=== PATIENT | female | born 1990 | race Caucasian/White ===

== ENCOUNTER 2016-10-09 22:52 | Emergency (ER) | payer MEDICAID, OTHER ==
[~2016-10-09] VITALS: Ht 162.6 cm; Wt 60.0 kg
[~2016-10-09 22:52] MED LIST: CYCL5TAB PO; NAPR500 PO
[2016-10-09 22:56] VITALS: BP 111/79; PULSE 112; RESP 20; TEMP 98.8; O2SAT 96
--- NOTE | 2016-10-10 00:06 | RADRPT ---
EXAM DATE/TIME: 10/09/2016 23:41 [place] COMPARISON: No previous studies available for comparison. INDICATIONS : Cough and chest congestion. MEDICAL HISTORY : None. SURGICAL HISTORY : None. ENCOUNTER: Initial ACUITY: 1 day PAIN SCORE: 8/10 LOCATION: Bilateral chest FINDINGS: PA and lateral views of the chest demonstrate the lungs to be symmetrically aerated without evidence of mass, infiltrate or effusion. The cardiomediastinal contours are unremarkable. Osseous structure s are intact. CONCLUSION: No acute disease. Michael Antonio MD on October 10, 2016 at 0:05 Board Certified Radiologist. This report was verified electronically.
[2016-10-10] MEDS ORDERED: CLAR10CA3 PO (00:13)
--- NOTE | 2016-10-10 00:14 | PD ---
HPI Chief Complaint: Cold / Flu Symptoms Time Seen by Provider: 23:10 Travel History International Travel<30 days: No Contact w/Intl Traveler<30days: No Traveled to known affect area: No History of Present Illness HPI This is an otherwise healthy 18 year-old woman who presents to the emergency department complaining of intermittent cough is persistent for the past 2 years. She states she just Keeps coming back and doesn't really go away completely. Is not really productive. No fevers or chills. No congestion. No sick contacts. She otherwise has been feeling well. History Past Medical History Medical History: Denies Significant Hx Tetanus Vaccination: < 5 Years Influenza Vaccination: No LMP: 10 DAYS : 0 Para: 0 Past Surgical History Surgical History: No Previous Surgery Social History Alcohol Use: Yes (WHEN SHE GOES OUT) Tobacco Use: Yes (WHEN SHE GOES OUT) Allergies-Medications (Allergen,Severity, Reaction): Coded Allergies: No Known Allergies (Verified , 10/09/16) Reported Meds & Prescriptions Reported Meds & Active Scripts Active Review of Systems Except as stated in HPI: all other systems reviewed are Neg Physical Exam Narrative GENERAL: Well-appearing 18 year-old woman, some intermittent cough. SKIN: Focused skin assessment warm/dry. HEAD: Atraumatic. Normocephalic. EYES: Pupils equal and round. No scleral icterus. No injection or drainage. ENT: No nasal bleeding or discharge. Mucous membranes pink and moist. NECK: Trachea midline. No JVD. CARDIOVASCULAR: Regular rate and rhythm. No murmur appreciated. RESPIRATORY: No accessory muscle use. Clear to auscultation. Breath sounds equal bilaterally. GASTROINTESTINAL: Abdomen soft, non-tender, nondistended. Hepatic and splenic margins not palpable. MUSCULOSKELETAL: No obvious deformities. No clubbing. No cyanosis. No edema. NEUROLOGICAL: Awake and alert. No obvious cranial nerve deficits. Motor grossly within normal limits. Normal speech. PSYCHIATRIC: Appropriate mood and affect; insight and judgment normal. Data Data Last Documented VS Vital Signs Date Time Temp Pulse Resp B/P Pulse Ox O2 Delivery O2 Flow Rate FiO2 10/09/16 23:29 Room Air 10/09/16 22:56 98.8 112 20 111/79 96 Orders Chest, Pa & Lat (10/09/16 ) [facility] Medical Decision Making Medical Screen Exam Complete: Yes Emergency Medical Condition: Yes Interpretation(s) Chest x-ray: Negative Differential Diagnosis Recurrent URIs, allergy symptoms, indigestion or reflux, other Narrative Course Medical decision making 18 year-old woman of recurrent chronic cough. Suspect allergies. No real reflux symptoms. No history of asthma. No wheezing on exam. She looks well. She is a little bit worried. I was a carrier for CF. Don't see any evidence of CSF I think it extremely unlikely. Recommend outpatient follow-up. Diagnosis Primary Impression: Chronic cough Additional Instructions: Take loratadine as prescribed. Follow-up with her primary physician in 2-4 weeks. Scripts Loratadine (Claritin)10 Mg Cap10 Mg PO DAILY 60 Days Ref 0 Prov:Damon Ramey MD 10/10/16 Disposition: 01 DISCHARGE HOME Condition: Stable Damon Ramey MD Oct 10, 2016 00:14
[2016-10-10 00:20] VITALS: BP 110/64
== END 2016-10-10 00:22 | disposition home or self-care (01) ==
LOC: PHED 22:52
DX: R05 Cough (principal)
CPT/HCPCS: 71020; 99283

== ENCOUNTER 2016-12-19 13:47 | Emergency (ER) | payer MEDICAID ==
[~2016-12-19] VITALS: Ht 162.6 cm; Wt 59.2 kg
[~2016-12-19 13:47] MED LIST changes: +CLAR10CA3 PO; -CYCL5TAB PO; -NAPR500 PO
[2016-12-19 13:54] VITALS: BP 96/67; PULSE 87; RESP 16; TEMP 98.6; O2SAT 97
[2016-12-19 14:19] LABS: BLOOD, URINE TRACE (NEG); GLUCOSE,URINE NEG (NEG); KETONE, URINE TRACE mg/dL (NEG); NITRITE,URINE NEG (NEG)
--- NOTE | 2016-12-19 14:24 | PD ---
HPI Chief Complaint: Electric Trucker Problem/Complaint Time Seen by Provider: 14:14 Travel History International Travel<30 days: No Contact w/Intl Traveler<30days: No Traveled to known affect area: No History of Present Illness HPI 26-year-old female patient presents to the ER today for several days history of pelvic discomfort and whitish foul smelling vaginal discharge. She states that the last time she had something similar, she had bacterial vaginosis. She denies any new partners, fevers, vomiting, or any other symptoms. Modifying Factors: None Associated Signs & Symptoms: Vaginal discharge Risk Factors: Bacterial vaginosis PFSH Past Medical History Diminished Hearing: No Tetanus Vaccination: > 5 Years Influenza Vaccination: No ?: Not : 0 Para: 0 Miscarriage: 0 : 0 Past Surgical History Abdominal Surgery: Yes Social History Alcohol Use: Yes (WHEN SHE GOES OUT) Tobacco Use: Yes (WHEN SHE GOES OUT) Substance Use: No Allergies-Medications (Allergen,Severity, Reaction): Coded Allergies: No Known Allergies (Verified , 12/19/16) Reported Meds & Prescriptions Reported Meds & Active Scripts Active No Active Prescriptions or Reported Medications Review of Systems Except as stated in HPI: all other systems reviewed are Neg Physical Exam Narrative GENERAL: Well-developed young female patient currently in no acute distress. Awake and oriented 3. SKIN: Focused skin assessment warm/dry. HEAD: Atraumatic. Normocephalic. EYES: Pupils equal and round. No scleral icterus. No injection or drainage. ENT: No nasal bleeding or discharge. Mucous membranes pink and moist. NECK: Trachea midline. No JVD. CARDIOVASCULAR: Regular rate and rhythm. No murmur appreciated. RESPIRATORY: No accessory muscle use. Clear to auscultation. Breath sounds equal bilaterally. GASTROINTESTINAL: Abdomen soft, non-tender, nondistended. Hepatic and splenic margins not palpable. GENITOURINARY: Normal external genitalia without lesions or erythema. Vaginal vault with a very small amount of blood at the cervical os but no drainage. Cervical os was closed without drainage. No cervical motion tenderness. Uterus nontender and nonenlarged. Bilateral adnexa nontender without masses. MUSCULOSKELETAL: No obvious deformities. No clubbing. No cyanosis. No edema. NEUROLOGICAL: Awake and alert. No obvious cranial nerve deficits. Motor grossly within normal limits. Normal speech. PSYCHIATRIC: Appropriate mood and affect; insight and judgment normal. Data Data Last Documented VS Vital Signs Date Time Temp Pulse Resp B/P (MAP) Pulse Ox O2 Delivery O2 Flow Rate FiO2 12/19/16 13:54 98.6 87 16 96/67 (77) 97 Orders Orders Gc And Chlamydia Pcr (12/19/16 13:59) Wet Prep Profile (12/19/16 13:59) Urinalysis - C+S If Indicated (12/19/16 13:59) Ed Urine Pregnancytest Poc (12/19/16 13:59) Labs Laboratory Tests Test 12/19/16 14:05 Urine Collection Type VOIDED Urine Color YELLOW Urine Turbidity SLIGHT Urine pH 6.0 Urine Specific [place] 1.027 Urine Protein 100 mg/dL Urine Glucose (UA) NEG mg/dL Urine Ketones TRACE mg/dL Urine Occult Blood TRACE Urine Nitrite NEG Urine Bilirubin NEG Urine Leukocyte Esterase TRACE Urine RBC 0-3 /hpf Urine WBC 0-2 /hpf Urine Squamous Epithelial Cells 6-8 /hpf Urine Bacteria FEW /hpf Urine Mucus FEW /lpf Microscopic Urinalysis Comment CULT NOT INDICATED MDM Medical Decision Making Medical Screen Exam Complete: Yes Emergency Medical Condition: Yes Medical Record Reviewed: Yes Differential Diagnosis Vaginal discharge: Bacterial vaginosis versus cervicitis as his UTI Narrative Course patient is not . UA did not show significant UTI. Considering patient' s history, my plan would be to treat her empirically for DrRafael vaginosis. GC is pending. 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 Return for new issues as needed. The plan has been discussed with her and she states understanding. Diagnosis Primary Impression: Vaginal discharge Med/Other Pt SpecificInfo: Prescription(s) given Scripts Metronidazole (Flagyl) 500 Mg Tab 500 MG PO TID for Infection for 7 Days, TAB 0 Refills Prov: Lucretia Hewitt MD 12/19/16 Disposition: 01 DISCHARGE HOME Condition: Stable Lucretia Hewitt MD Dec 19, 2016 14:24
[2016-12-19 14:26] LABS: METHOD OF COLLECTION VOIDED; URINE COLOR YELLOW (YELLW/STRAW)
[2016-12-19 14:32] LABS: MUCUS URINE FEW /lpf (OCC); WBC, URINE 0-2 /hpf (0-5)
[2016-12-19 14:33] LABS: BACTERIA, URINE FEW /hpf; COMMENT (UR) CULT NOT INDICATED; CULTURE IF INDICATED CULT NOT INDICATED; RBC, URINE 0-3 /hpf (0-3)
[2016-12-19] MEDS ORDERED: METR-1 PO (14:36)
[2016-12-19 18:30] LABS: CHLAMYDIA PCR NOT DETECTED (NOT DETECT); NEISSERIA PCR NOT DETECTED (NOT DETECT)
== END 2016-12-19 14:57 | disposition home or self-care (01) ==
LOC: PHED 13:47
DX: N89.8 Other specified noninflammatory disorders of vagina (principal); R10.2 Pelvic and perineal pain; Z72.0 Tobacco use
CPT/HCPCS: 81001; 84703; 87210; 87491; 87591; 99283

== ENCOUNTER 2017-07-24 07:41 | Emergency (ER) | payer MEDICAID ==
[~2017-07-24] VITALS: Ht 157.5 cm; Wt 56.0 kg
[~2017-07-24 07:41] MED LIST changes: +BENZ100 PO; -CLAR10CA3 PO; +OMEP20TA93 PO; +VENTAER INH
[2017-07-24 07:44] VITALS: BP 114/72; PULSE 93; RESP 17; TEMP 98.4; O2SAT 97
--- NOTE | 2017-07-24 08:10 | PD ---
HPI Chief Complaint: Abdominal Pain Time Seen by Provider: 07:59 Travel History International Travel<30 days: No Contact w/Intl Traveler<30days: No Traveled to known affect area: No History of Present Illness HPI 27-year-old female complains of low abdominal pain and dark cloudy urine. Patient states that the symptoms started 2 days ago. Patient states the pain and cramping pain with shooting pain down to the vaginal area. Patient denies any vaginal discharge or bleeding. Patient denies any back pain. Patient denies any nausea vomiting diarrhea. Patient denies any dysuria. Patient states that she had urinary frequency. Patient denies any chest pain or shortness of breath. On a scale of 1-10 the pain is a 7. Patient got a second Depo shot yesterday. PFSH Past Medical History Medical History: Denies Significant Hx Diminished Hearing: No Tetanus Vaccination: > 5 Years Influenza Vaccination: No ?: Not LMP: Apr 2017 : 2 Para: 2 Miscarriage: 0 : 3 Past Surgical History Surgical History: No Previous Surgery Abdominal Surgery: Yes Social History Alcohol Use: Yes (WHEN SHE GOES OUT) Tobacco Use: Yes (WHEN SHE GOES OUT) Substance Use: No Allergies-Medications (Allergen,Severity, Reaction): Coded Allergies: No Known Allergies (Verified Adverse Reaction, Unknown, 07/24/17) Reported Meds & Prescriptions Reported Meds & Active Scripts Active No Active Prescriptions or Reported Medications Review of Systems General / Constitutional: No: Fever Eyes: No: Visual changes HENT: No: Headaches Cardiovascular: No: Chest Pain or Discomfort Respiratory: No: Shortness of Breath Gastrointestinal: Positive: Abdominal Pain Genitourinary: No: Dysuria Musculoskeletal: No: Pain Skin: No Rash Neurologic: No: Weakness Psychiatric: No: Depression Endocrine: No: Polydipsia Hematologic/Lymphatic: No: Easy Bruising Physical Exam Narrative GENERAL: Well-nourished, well-developed patient. SKIN: Focused skin assessment warm/dry. HEAD: Normocephalic. EYES: No scleral icterus. No injection or drainage. NECK: Supple, trachea midline. No JVD or lymphadenopathy. CARDIOVASCULAR: Regular rate and rhythm without murmurs, gallops, or rubs. RESPIRATORY: Breath sounds equal bilaterally. No accessory muscle use. GASTROINTESTINAL: Abdomen soft, nondistended. Patient has moderate tenderness on palpation lower abdomen suprapubic area. No rebound tenderness. No mass. MUSCULOSKELETAL: No cyanosis, or edema. BACK: Nontender without obvious deformity. No CVA tenderness. [employer] exam: Patient has small amount of whitish discharge in the vaginal vault. Positive cervical motion tenderness. Uterus is nonenlarged with moderate tenderness on palpation. No adnexal mass or tenderness. Data Data Last Documented VS Vital Signs Date Time Temp Pulse Resp B/P (MAP) Pulse Ox O2 Delivery O2 Flow Rate FiO2 07/24/17 07:44 98.4 93 17 114/72 (86) 97 Orders Orders Complete Blood Count With Diff (07/24/17 08:06) Comprehensive Metabolic Panel (07/24/17 08:06) Gc And Chlamydia Pcr (07/24/17 08:06) Wet Prep Profile (07/24/17 08:06) Urinalysis - C+S If Indicated (07/24/17 08:06) Iv Access Insert/Monitor (07/24/17 08:06) Urine Culture (07/24/17 08:10) Labs Laboratory Tests Test 07/24/17 08:10 White Blood Count 5.7 TH/MM3 Red Blood Count 4.59 MIL/MM3 Hemoglobin 13.7 GM/DL Hematocrit 39.6 % Mean Corpuscular Volume 86.4 FL Mean Corpuscular Hemoglobin 29.9 PG Mean Corpuscular Hemoglobin Concent 34.7 % Red Cell Distribution Width 13.0 % Platelet Count 277 TH/MM3 Mean Platelet Volume 7.6 FL Neutrophils (%) (Auto) 65.1 % Lymphocytes (%) (Auto) 27.0 % Monocytes (%) (Auto) 6.8 % Eosinophils (%) (Auto) 0.7 % Basophils (%) (Auto) 0.4 % Neutrophils # (Auto) 3.7 TH/MM3 Lymphocytes # (Auto) 1.5 TH/MM3 Monocytes # (Auto) 0.4 TH/MM3 Eosinophils # (Auto) 0.0 TH/MM3 Basophils # (Auto) 0.0 TH/MM3 CBC Comment DIFF FINAL Differential Comment Urine Color YELLOW Urine Turbidity HAZY Urine pH 5.5 Urine Specific [place] 1.030 Urine Protein 30 mg/dL Urine Glucose (UA) NEG mg/dL Urine Ketones NEG mg/dL Urine Occult Blood NEG Urine Nitrite NEG Urine Bilirubin NEG Urine Urobilinogen LESS THAN 2.0 MG/DL Urine Leukocyte Esterase LARGE Urine RBC 4 /hpf Urine WBC 40 /hpf Urine Squamous Epithelial Cells 22 /hpf Urine Bacteria OCC /hpf Urine Mucus MANY /lpf Microscopic Urinalysis Comment CULTURE INDICATED Blood Urea Nitrogen 11 MG/DL Creatinine 0.85 MG/DL Random Glucose 96 MG/DL Total Protein 7.4 GM/DL Albumin 3.9 GM/DL Calcium Level 9.0 MG/DL Alkaline Phosphatase 59 U/L Aspartate Amino Transf (AST/SGOT) 15 U/L Alanine Aminotransferase (ALT/SGPT) 24 U/L Total Bilirubin 0.4 MG/DL Sodium Level 140 MEQ/L Potassium Level 3.8 MEQ/L Chloride Level 108 MEQ/L Carbon Dioxide Level 25.6 MEQ/L Anion Gap 6 MEQ/L Estimat Glomerular Filtration Rate 79 ML/MIN [facility] Medical Decision Making Medical Screen Exam Complete: Yes Emergency Medical Condition: Yes Interpretation(s) 8:49 AM. CBC within normal limits. CMP within normal limits. UA positive for WBC and bacteria. Wet prep, GC chlamydia PCR pending. Differential Diagnosis Differential diagnosis including UTI, pyelonephritis, nephrolithiasis, cervicitis, PID, ovarian cyst, ovarian torsion, ectopic . Narrative Course 27-year-old female with low abdominal pain. Physical exam consistent with PID. Rocephin 250 mg IM given. Zithromax 1 g p.o. given. Diagnosis Primary Impression: Cervicitis Additional Impression: UTI (urinary tract infection) Qualified Codes: N30.00 - Acute cystitis without hematuria Patient Instructions: General Instructions Additional Instructions: Take medication as directed. Follow-up with personal physician. Return to persistent problem or worse. Med/Other Pt SpecificInfo: Prescription(s) given Scripts Ibuprofen (Ibuprofen) 600 Mg Tab 600 MG PO TID for Pain, #30 TAB 0 Refills Prov: Chi Mccormack MD 07/24/17 Sulfamethoxazole-Trimethoprim (Bactrim DS) 800-160 Mg Tab 1 TAB PO BID for Infection, #14 TAB 0 Refills Prov: Chi Mccormack MD 07/24/17 Disposition: 01 DISCHARGE HOME Condition: Stable Chi Mccormack MD Jul 24, 2017 08:10
[2017-07-24 08:20] LABS: AUTOMATED NEUTROPHIL # 3.7 TH/MM3 (1.8-7.7); BASOPHIL % 0.4 % (0.0-2.0); EOSINOPHIL % 0.7 % (0.0-4.0); HEMATOCRIT 39.6 % (35.0-46.0); HEMOGLOBIN 13.7 GM/DL (11.6-15.3); LYMPHOCYTE # 1.5 TH/MM3 (1.0-4.8); MEAN CELL VOLUME 86.4 FL (80.0-100.0); MEAN CORPUSCULAR HEMOGLOBIN 29.9 PG (27.0-34.0); MEAN CORPUSCULAR HGB CONC 34.7 % (32.0-36.0); MEAN PLATELET VOLUME 7.6 FL (7.0-11.0); MONO % 6.8 % (0.0-8.0); MONOCYTE # 0.4 TH/MM3 (0-0.9); NEUT % 65.1 % (16.0-70.0); PLATELET COUNT 277 TH/MM3 (150-450); RED BLOOD COUNT 4.59 MIL/MM3 (4.00-5.30); WHITE BLOOD COUNT 5.7 TH/MM3 (4.0-11.0)
[2017-07-24 08:29] LABS: BACTERIA, URINE OCC /hpf; BILIRUBIN, URINE NEG (NEG); BLOOD, URINE NEG (NEG); GLUCOSE,URINE NEG (NEG); KETONE, URINE NEG (NEG); MUCUS URINE MANY /lpf (OCC); NITRITE,URINE NEG (NEG); PH, URINE 5.5 (5.0-8.5); SQUAMOUS EPITHELIAL CELL URINE 22 /hpf (0-5); URINE COLOR YELLOW (YELLW/STRAW); URINE LEUKOCYTE ESTERASE LARGE (NEG)
[2017-07-24 08:38] LABS: ALBUMIN 3.9 GM/DL (3.4-5.0); ALT (GPT) 24 U/L (10-53); AST (GOT) 15 U/L (15-37); BICARBONATE 25.6 MEQ/L (21.0-32.0); BLOOD UREA NITROGEN 11 MG/DL (7-18); CHLORIDE 108 MEQ/L (98-107); CREATININE 0.85 MG/DL (0.50-1.00); GLOMERULAR FILTRATION RATE 79 ML/MIN (>89); GLUCOSE,RANDOM 96 MG/DL (74-106); SODIUM (NA) 140 MEQ/L (136-145)
[2017-07-24 08:40] LABS: ALKALINE PHOSPHATASE 59 U/L (45-117); TOTAL BILIRUBIN ADULT 0.4 MG/DL (0.2-1.0); TOTAL PROTEIN 7.4 GM/DL (6.4-8.2)
[2017-07-24] MEDS ORDERED: BACT800T5 PO (08:51)
[2017-07-24] MEDS ORDERED: IBUP-232 PO (08:51)
[2017-07-24] MEDS ORDERED: LIDOCAINE HCL 1% 50 ML VIAL IM ONE (09:00)
[2017-07-24] MEDS ORDERED: cefTRIAXone 250 MG VIAL IM ONE (09:00)
[2017-07-24] MEDS ORDERED: AZITHROMYCIN PWD FOR SUSP 1 GM PACKET PO ONE (09:00)
[2017-07-24] MEDS ORDERED: LIDOCAINE HCL 1% 20 ML VIAL OTHER ONE (09:30)
[2017-07-24 10:21] VITALS: BP 98/64
== END 2017-07-24 10:22 | disposition home or self-care (01) ==
LOC: NEPC 07:41
DX: N72 Inflammatory disease of cervix uteri (principal); N30.00 Acute cystitis without hematuria; B96.89 Other specified bacterial agents as the cause of diseases classified elsewhere
CPT/HCPCS: 80053; 81001; 85025; 87077; 87086; 87186; 87210; 87491; 87591; 96372; 99283; J0696